=== PATIENT | female | born 1995 | race African-American/Black ===

== ENCOUNTER 2016-07-18 10:48 | Day surgery (SDC) | payer OTHER ==
[2016-07-17 10:48] VITALS: BMI 26.8
[~2016-07-18] VITALS: Ht 170.2 cm; Wt 72.8 kg
[2016-07-18] VITALS (14 sets, daily range): BP systolic 107–130; BP diastolic 60–94; PULSE 18–96; RESP 16–22; Ht 170.2 cm; Wt 72.8 kg
[~2016-07-18 10:48] MED LIST: CEFAZOLIN 1 GM INJ ONE; CEFAZOLIN 2 GM/50 ML (PMX) 50 ML IVPB ONE; DEXAMETHASONE 4 MG/ML 1 ML INJ ONE; FENTAnyl 50 MCG/ML VIAL ONE; GLYCOPYRROLATE 0.4 MG INJ ONE; LIDOCAINE 2% (SDV) 5 ML INJ ONE; MIDAZOLAM 1 MG/ML 2 ML INJ ONE; NEOSTIGMINE 3 MG/3 ML SYRINGE ONE; ONDANSETRON 4 MG INJ ONE; PROPOFOL 20 ML ONE; ROCURONIUM 50 MG INJ ONE; SOD CHLORIDE 0.9% 1,000 ML IV SCH; SUCCINYLCHOLINE CHLORIDE 100 MG/5 ML SYG IV ONE
[2016-07-18] MEDS ORDERED: BUPIVACAINE 0.25% (MPF) 10 ML 10 ML VIAL ONE (13:25)
--- NOTE | 2016-07-18 14:21 | OPR ---
Date/Time of Note Date/Time of Note DATE: 07/18/16 TIME: 14:20 Operative Report Procedure Date: Jul 18, 2016 Preoperative Diagnosis left breast tumor Postoperative Diagnosis same Operation Performed left breast tumor excision localized adjacent tissue transfer with the use of skin flaps 12 sq cm Surgeon: Antonio BECKWTIH Specimens left breast tumor Antonio BECKWITH Jul 18, 2016 14:21
[2016-07-18] MEDS ORDERED: HYDROCODONE/APAP (5/325) TAB PO ONE (14:30)
--- NOTE | 2016-07-18 15:37 | OPR ---
DATE OF OPERATION: 07/18/2016 INDICATION: This is a 21-year-old female with a painful left breast tumor. She requests surgical e xcision. Risks, alternatives, benefits, and personnel were discussed with the patient. Patient exp ressed understanding and consents to the operation. PREOPERATIVE DIAGNOSIS: Painful left breast tumor. POSTOPERATIVE DIAGNOSIS: Painful left breast tumor. OPERATION PERFORMED: 1. Excision of left breast tumor with a 6 cm size incision and 7 x 4 cm size tumor. 2. Localized adjacent tissue transfer with the use of skin flaps with 12 square cm defect. SURGEON: April Ulloa MD SPECIMEN: Left breast tumor. COMPLICATIONS: None. ANESTHESIA: General. PROCEDURE: The patient was taken to the OR and prepped and draped in the usual sterile fashion. [place] rgical timeout was performed. IV antibiotics were given. A curvilinear incision is made with a 15 blade over the left breast areolar border. Dissection cautery was carried down to the mass and circ umferentially excised. There was good hemostasis. Additional 2 areas were also hardened and this w as also excised with wide local excision. There was good hemostasis. Due to the large tissue defec t, localized adjacent tissue transfer with the use of skin flaps was performed. Multilevel closure with interrupted 3-0 Vicryl and running 4-0 Monocryl. Local anesthesia was injected. Dry dressings were applied. Dictated By: APRIL ORO/MADELEINE Conf#: [id number] DID#: [id number]
== END 2016-07-18 16:08 | disposition home or self-care (01) ==
LOC: SDS 10:48
PROVIDERS: ATTEND Surgery
DX: D24.2 Benign neoplasm of left breast (principal)
CPT/HCPCS: 14001; 19120; 84703; 88307; J0690; J2405; J7999; Z7512; Z7610; J1100; J2250; J2710; J3010